=== PATIENT | male | born 1955 | race Caucasian/White ===

== ENCOUNTER 2021-04-07 19:50 | Emergency (ER) | payer MEDICARE, BC ==
[2021-04-07] MEDS ORDERED: Ketorolac 60 MG/2 ML SDV IM ONE (20:25)
[2021-04-07] MEDS ORDERED: Take Home: Acetaminophen/HYDROcodone 325-5 MG, 2 Tab Pack PO ONE (20:38)
--- NOTE | 2021-04-07 20:44 | EDM.PDOC ---
ED HPI GENERAL MEDICAL PROBLEM - General Chief Complaint: Lower Extremity Injury/Pain Stated Complaint: knee pain Time Seen by Provider: 04/07/21 20:00 Source of Information: Reports: Patient History Limitations: Reports: No Limitations - History of Present Illness INITIAL COMMENTS - FREE TEXT/NARRATIVE: Andrew is a 65 year old male who presents to ER with complaints of right knee pain. Got kicked by a cow yesterday. States "initially did drop me to my knees". Did ice frequently last night. 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 Has limited range of motion. Been using crutches this afternoon. Had an injury to his right knee back when he was 15 years old. Had a tendon tear that was repaired with a screw. Relates does have significant arthritis but was told previously by ortho that he wouldn't need a replacement until the knee hurts more. No other trauma related concerns. No head trauma, no loss of consciousness. No shortness of breath, no chest discomfort. No abdominal concerns. 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 reports "plastic tendon and some screws" to knee Dermatological Surgical History: Reports: Other (See Below) Social & Family History - Tobacco Use Tobacco Use Status *Q: Never Tobacco User - Caffeine Use Caffeine Use: Reports: None - Recreational Drug Use Recreational Drug Use: No Review of Systems - Review of Systems Review Of Systems: See Below Constitutional: Reports: No Symptoms Eyes: Reports: No Symptoms Ears: Reports: No Symptoms Nose: Reports: No Symptoms Mouth/Throat: Reports: No Symptoms Respiratory: Denies: Shortness of Breath Cardiovascular: Denies: Chest Pain GI/Abdominal: Denies: Abdominal Pain, Nausea, Vomiting Genitourinary: Reports: No Symptoms Musculoskeletal: Reports: Leg Pain, Joint Pain, Joint Swelling Skin: Reports: Bruising Neurological: Reports: No Symptoms ED EXAM, GENERAL - Physical Exam Exam: See Below Exam Limited By: No Limitations General Appearance: Alert, WD/WN, No Apparent Distress Head: Normocephalic Neck: Normal Inspection, Supple, Non-Tender Respiratory/Chest: Lungs Clear Cardiovascular: Regular Rate, Rhythm GI/Abdominal: Normal Bowel Sounds, Soft, Non-Tender Back Exam: Normal Inspection, Full Range of Motion Extremities: Joint Swelling, Limited Range of Motion, Other (patient noted to have ecchymosis to medial right knee, considerable swelling. Can flex his knee to approximately 45 degrees. Unable to fully extend.) Neurological: Alert, Oriented Skin Exam: Warm, Dry, Ecchymosis Course - Vital Signs Last Recorded V/S: Last Vital Signs Temp 98.1 F 04/07/21 19:50 Pulse 88 04/07/21 19:50 Resp 18 04/07/21 19:50 BP 155/89 H 04/07/21 19:50 Pulse Ox 96 04/07/21 19:50 - Orders/Labs/Meds Orders: Active Orders 24 hr Category Date Time Status Knee 3V Rt [CR] Stat Exams 04/07/21 19:56 Taken Meds: Medications Discontinued Medications Generic Name Dose Route Start Last Admin Trade Name Keila PRN Reason Stop Dose Admin Hydrocodone Bitart/Acetaminophen 2 packet 04/07/21 20:38 04/07/21 20:43 Take Home: Acetaminophen/Hydrocodone 325-5 Mg, 2 Tab Pack PO 04/07/21 20:39 2 packet ONETIME ONE Administration Ketorolac Tromethamine 60 mg 04/07/21 20:25 04/07/21 20:29 Ketorolac 60 Mg/2 Ml Sdv IM 04/07/21 20:26 60 mg ONETIME ONE Administration - Re-Assessments/Exams Free Text/Narrative Re-Assessment/Exam: 04/07/21 Radiologist contacted to review xrays due to considerable degenerative changes in knee as well. No obvious fracture noted. Does have tricompartmental degener ative disease. Edinson wrap applied to knee and instructions given. Departure - Departure Time of Disposition: 20:39 Disposition: Home, Self-Care 01 Condition: Fair Clinical Impression: Contusion of knee - Discharge Information *PRESCRIPTION DRUG MONITORING PROGRAM REVIEWED*: No *COPY OF PRESCRIPTION DRUG MONITORING REPORT IN PATIENT FREDDY: No Instructions: Contusion, [id number] Referrals: Maegan Duncan PA-C [Primary Care Provider] - Forms: ED Department Discharge Additional Instructions: 1. Rest knee 2. Elevate leg above level of heart tonight/tomorrow 3. Ice every 2 hours through tomorrow then may alternate with heat 4. Weight bear as tolerated 5. [place] 1-2 tabs every 6 hours as needed for pain 6. Follow up in clinic early next week for persistent pain or swelling, may need to consider MRI 7. Consider physical therapy for evaluation and treatment Sepsis Event Note (ED) - Evaluation Sepsis Screening Result: No Definite Risk - Focused Exam Vital Signs: Vital Signs Temp Pulse Resp BP Pulse Ox 04/07/21 19:50 98.1 F 88 18 155/89 H 96 - My Orders Last 24 Hours: My Active Orders 04/07/21 19:56 Knee 3V Rt [CR] Stat - Assessment/Plan Last 24 Hours: My Active Orders 04/07/21 19:56 Knee 3V Rt [CR] Stat
== END 2021-04-07 21:00 | disposition home or self-care (01) ==
LOC: CC.ED 19:50 → SUPCPDRO 19:50 → CC.ED 21:00
DX: S80.01XA Contusion of right knee, initial encounter (principal); W55.82XA Struck by other mammals, initial encounter
CPT/HCPCS: 73562; 96372; 99283; A9270; J1885